=== PATIENT | female | born 1990 | race Two or more races ===

== ENCOUNTER 2021-11-21 23:48 | Emergency (ER) | payer OTHER ==
[~2021-11-21] VITALS: Ht 165.1 cm; Wt 74.8 kg
[2021-11-22] MEDS ORDERED: predniSONE 20 MG TAB PO ONE (01:00)
[2021-11-22] MEDS ORDERED: PRED20TA2 PO (02:36)
[2021-11-22] MEDS ORDERED: ALBU108A5 IN (02:36)
[2021-11-22] MEDS ORDERED: CETI1TAB36 PO (02:36)
[2021-11-22 03:04] VITALS: BP 112/57
== END 2021-11-22 03:32 | disposition home or self-care (01) ==
LOC: EDBD 23:48 → ER 11-22 00:10
DX: J45.909 Unspecified asthma, uncomplicated (principal); Z88.0 Allergy status to penicillin; Z88.1 Allergy status to other antibiotic agents
CPT/HCPCS: 93005; 99283; J7512